=== PATIENT | female | born 1955 | race Caucasian/White ===

== ENCOUNTER 2020-10-12 14:53 | Emergency (ER) | payer MEDICARE, SELFPAY ==
[2020-10-12 14:54] VITALS: BP 169/78; PULSE 86; RESP 21; TEMP 37.1; O2SAT 97; BMI 33.7
--- NOTE | 2020-10-12 15:15 | EKG12_ITS ---
Test Reason : CHEST PAIN Blood Pressure : / mmHG Vent. Rate : 075 BPM Atrial Rate : 075 BPM P-R Int : 158 ms QRS Dur : 090 ms QT Int : 404 ms P-R-T Axes : 060 006 012 degrees QTc Int : 451 ms Sinus rhythm with occasional Premature ventricular complexes Nonspecific ST abnormality Abnormal ECG Confirmed by NOVA VALADEZ, FRANKY ([id number]), film or videotape editor GERONIMO HORAN ([id number]) on 10/13/2020 10:40:19 AM Referred By: MR Confirmed By:FRANKY BHATT MD
--- NOTE | 2020-10-12 15:15 | ED.VIS.CHEST ---
HPI History of Present Illness Chief Complaint: Chest Pain Narrative Narrative: 65-year-old female presenting with chest pain. She states it is sharp and intermittent. It has been going on for about a month. It does not appear to be exertional in nature. She does not get short of breath, diaphoretic, lightheaded when the pain comes. she states that last about a minute. She denies sensation of chest heaviness or pressure. She denies fever or cough. She states her only medical problem is hypertension and seasonal allergies. Patient states that yesterday she was watering in her garden in the heat it was very sweaty but denies any chest pain during this episode. She did say it took her about an hour and a half to cool off and she does have AC in her home. Patient denies any shortness of breath or chest pain at all during school. She states that she has been a little rundown over the course of the last month but has really tried to be active. He has no history of stress test. No history of DVT/PE and no risk factors. PFSH PFS Medical History Hypertension Home Medications hydrochlorothiazide 25 mg PO DAILY 10/12/20 [History Last Taken Unknown] lisinopril 40 mg PO DAILY 10/12/20 [History Last Taken Unknown] Allergy/AdvReac Type Severity Reaction Status Date / Time bees Allergy Anaphylaxis Uncoded 10/12/20 14:54 Social History Smoking Status: Never smoker ROS [facility] ED Constitutional Constitutional ED: Denies chills, fever(s) or sweats Eyes Eyes: Denies blurry vision or diplopia ENT ENT ED: Denies rhinorrhea or sore throat Cardiovascular Cardiovascular: Reports chest pain; Denies palpitations or racing heartbeat Respiratory/Chest Respiratory/Chest: Denies cough, dyspnea or sputum Gastrointestinal Gastrointestinal: Denies abdominal pain or nausea Genitourinary Genitourinary ED: Denies dysuria or hematuria Musculoskeletal Musculoskeletal: Denies arthralgias or myalgias Integumentary Denies abscess or rash Neurologic Neurologic: Denies headache(s), paresthesias or weakness Psychiatric Psychiatric: Denies anxiety or depression EXAM Physical Exam Const Vital Signs: 10/12/20 14:54 10/12/20 15:25 Temperature 98.8 F Temperature Source Temporal Pulse Rate 86 Respiratory Rate 21 H Blood Pressure 169/78 H Blood Pressure Mean 108 Pulse Ox 97 Oxygen Delivery Method Room Air Room Air Positive well nourished General Appearance ED: NAD HEENT normocephalic and atraumatic Eyes PERRL and EOMs intact bilaterally Chest Wall inspection of chest normal and palpation of chest normal Resp normal respiratory effort Effort and Inspection: respiratory distress Cardio regular rate and regular rhythm GI normal to inspection, nondistended, normoactive bowel sounds Extremity normal to inspection General Extremety ED: Negative for edema General Extremity: Negative for edema Neuro oriented x3 Sensorium / Orientation: awake and alert Psych mental status grossly normal Skin no rashes or lesions noted Heart Score History: Slightly/Non-Suspicious ECG: Normal Age: >/= 65 years Risk Factors: 1 or 2 Risk Factors Troponin: </= Normal Limit Score: 3 MDM MDM MDM Narrative Medical decision making narrative: Patient presents with a sharp upper left chest pain which has been intermittent. She has no associated symptoms and there is no radiation of the pain. Patient has not had any fever or chills. Patient does state that she has been rundown over the course of the last month in the same timeframe as the pain has been sporadic. Patient CBC shows no leukocytosis. Hemoglobin hematocrit are stable. Platelets are normal. BMP shows a creatinine of 1.59 and I have no comparison. Potassium is 3.2 but I feel like this can be with diet. Patient does state that she has some stomach upset as well. Troponin initially is 5.1. EKG as interpreted by myself shows a normal sinus rhythm at 75 bpm without significant change from previous EKG 14 March 2009. Chest x-ray is interpreted by myself shows no acute cardiopulmonary process and the radiologist does agree. Patient's D-dimer is negative. Second troponin drawn at 2 hours is also negative. I feel the patient can be discharged home at this time. She is instructed to follow-up with her PCP. Patient stable for discharge at this time. Impression: 1. Chest pain 2. Elevated creatinine Lab Data Attestation: I reviewed the patient's lab results. Labs: Laboratory Results - last 24 hr 10/12/20 10/12/20 10/12/20 15:00 15:00 15:20 WBC 6.6 RBC 4.82 Hgb 14.1 Hct 42.3 MCV 87.8 MCH 29.3 MCHC 33.3 RDW Std Deviation 40.8 RDW Coeff of Margie 12.7 Plt Count 196 MPV 11.5 Immature Gran % (Auto) 0.300 Neut % (Auto) 57.6 Lymph % (Auto) 32.9 Sunflower % (Auto) 7.2 Eos % (Auto) 1.8 Baso % (Auto) 0.2 Absolute Neuts (auto) 3.8 Absolute Lymphs (auto) 2.18 Nucleated RBC % 0 D-Dimer Quant (PE/DVT) 0.47 Sodium 140 Potassium 3.2 L Chloride 104 Carbon Dioxide 31.0 Anion Gap 5 BUN 22 H Creatinine 1.59 H Estim Creat Clear Calc 31.74 Est GFR (MDRD) Af Amer 42 L Est GFR (MDRD) Non-Af 35 L BUN/Creatinine Ratio 13.8 Glucose 126 H Calcium 8.7 Troponin I High Sens 5.1 10/12/20 16:59 WBC RBC Hgb Hct MCV MCH MCHC RDW Std Deviation RDW Coeff of Margie Plt Count MPV Immature Gran % (Auto) Neut % (Auto) Lymph % (Auto) Sunflower % (Auto) Eos % (Auto) Baso % (Auto) Absolute Neuts (auto) Absolute Lymphs (auto) Nucleated RBC % D-Dimer Quant (PE/DVT) Sodium Potassium Chloride Carbon Dioxide Anion Gap BUN Creatinine Estim Creat Clear Calc Est GFR (MDRD) Af Amer Est GFR (MDRD) Non-Af BUN/Creatinine Ratio Glucose Calcium Troponin I High Sens 6.6 Radiography Diagnostic Testing: Radiology Impression Chest X-Ray 10/12/20 15:30 IMPRESSION: No acute abnormality is present. Electronically Signed: Arben Moise MD at 15:44 EDT , Service support , Discharge Plan Triage Chief Complaint: Chest Pain Other Complaint: CPR ED Provider: Milan Felix Dx/Rx/DC Orders Instructions: ED Chest Pain, Uncertain Cause Prescriptions: No Action hydrochlorothiazide 25 mg tablet 25 mg PO DAILY RF: 0 lisinopril 40 mg tablet 40 mg PO DAILY RF: 0 Referrals: LULU WONG [Other] Disposition Disposition: Home, Self Care
[2020-10-12 15:27] LABS: Absolute Lymphocyte Count 2.18 X10^3/uL (0.83-4.51); Absolute Neutrophil Count 3.8 X10^3/uL (2.0-7.7); Basophil# 0.01 X10^3/uL; Basophil% 0.2 % (0-1); Eosinophil# 0.12 X10^3/uL; Eosinophils% 1.8 % (0-5); Hematocrit 42.3 % (37-47); Hemoglobin 14.1 g/dL (12.0-15.0); Lymphocyte # 2.18 X10^3/ul (0.83-4.51); Lymphocyte % 32.9 % (19-41); Mean Corp Hgb Conc 33.3 g/dL (32-36); Mean Corpuscular Hgb 29.3 pg (27.0-32.0); Mean Corpuscular Volume 87.8 fL (81-99); Mean Platelet Vol. 11.5 fl (6.2-12.0); Monocyte# 0.48 X10^3/uL; Monocyte% 7.2 % (0-10); NRBC Flagged by Analyzer 0 % (0-5); Neutrophil # 3.82 X10^3/uL (2.7-7.7); Neutrophil % 57.6 % (47-70); Platelet Count 196 K/mm3 (150-450); RBC Distribution Width CV 12.7 % (11.6-14.6); RBC Distribution Width SD 40.8 fl (35.1-43.9); Red Blood Count 4.82 M/mm3 (4.2-5.4); White Blood Count 6.6 K/mm3 (4.4-11.0)
[2020-10-12] MEDS: Aspirin 81 MG TAB.CHEW 324 MG PO (15:30)
--- NOTE | 2020-10-12 15:30 | RAD_ITS ---
STUDY: X-RAY CHEST REASON FOR EXAM: Female, 65 years old. One month history of chest pain. TECHNIQUE: Single AP portable view of the chest. COMPARISON: None. FINDINGS: EKG electrodes are seen. The lungs are clear and expanded. There is no demonstrated pleural abnormality. Normal size heart. Normal mediastinum and yanira. Normal visualized pulmonary arteries. Normal visualized aortic arch and descending thoracic aorta. There are diffuse degenerative changes of the visualized thoracic spine. Normal visualized ribs, clavicles, and shoulders. There is no demonstrated abnormality of the visualized soft tissue structures of the upper abdomen. RAD/Chest 1 View (Portable) IMPRESSION: No acute abnormality is present. Electronically Signed: Arben Moise MD at 15:44 EDT , Service support ,
[2020-10-12 15:39] LABS: D-Dimer Quantitative (DVT/PE) 0.47 FEU/ug/m (0.27-0.49)
[2020-10-12 15:48] LABS: Anion Gap 5 (5-15); BUN 22 mg/dL (7-18); BUN/Creat Ratio 13.8 RATIO (10-20); Calcium,Total 8.7 mg/dL (8.5-10.1); Chloride 104 mmol/L (98-107); Creatinine, Serum 1.59 mg/dL (0.55-1.02); EST Glomerular Filtration Rate 35 mL/min (>60); Est Glom Filt Rate - Afr Amer 42 mL/min (>60); Estimated Creatinine Clearance 31.74 ml/min; Glucose 126 mg/dL (74-106); Potassium 3.2 mmol/L (3.5-5.1); Sodium Level 140 mmol/L (136-145); Troponin-I HS 5.1 pg/mL (3.0-53.7)
[2020-10-12 17:25] LABS: Troponin-I HS 6.6 pg/mL (3.0-53.7)
[2020-10-12 17:39] VITALS: BP 133/72; PULSE 59; RESP 14; O2SAT 98
== END 2020-10-12 17:46 | disposition home or self-care (01) ==
PROVIDERS: Emergency Provider Student in an Organized Health Care Education/Training Program
DX: R07.9 Chest pain, unspecified (principal); R79.89 Other specified abnormal findings of blood chemistry; I10 Essential (primary) hypertension; Z79.899 Other long term (current) drug therapy
CPT/HCPCS: 71045; 80048; 84484; 85025; 85379; 93005; 99283; A4216